=== PATIENT | male | born 1930 | race Two or more races ===

== ENCOUNTER 2020-09-18 07:42 | Inpatient (IN) | payer OTHER ==
[~2020-09-18] VITALS: Ht 177.8 cm; Wt 76.8 kg
[2020-09-18 08:48] LABS: Basophils # (auto) 0 10 ^3/uL (0-0.2); Basophils % (auto) 0.2 % (0.0-2.0); Eosinophils # (auto) 0 10 ^3/uL (0-0.8); Eosinophils % (auto) 0.1 % (0.0-7.0); Hematocrit 43.3 % (41.0-53.0); Hemoglobin 14.9 g/dL (13.5-17.5); Lymphocytes # (auto) 0.3 10 ^3/uL (0.4-5.4); Lymphocytes % (auto) 2.4 % (10.0-50.0); Mean Corpuscular Hemoglobin 31.7 pg (28.0-32.0); Mean Corpuscular Hgb Conc. 34.4 g/dL (32.0-36.0); Mean Corpuscular Volume 92.1 fL (80.0-100.0); Monocytes # (auto) 0.5 10 ^3/uL (0-1.3); Monocytes % (auto) 4.6 % (0.0-12.0); Neutrophils # (auto) 10.4 10 ^3/uL (1.6-8.6); Neutrophils % (auto) 92.7 % (37.0-80.0); Platelet Count (auto) 152 10^3/uL (140-450); Red Cell Distribution Width 13.4 % (11.8-14.3); White Blood Cell 11.2 10^3/uL (4.4-10.8)
[2020-09-18 09:03] LABS: Albumin 3.2 g/dL (3.4-5.0); Amylase 69 U/L (25-115); Anion Gap 6 (5-15); Blood Urea Nitrogen 20 mg/dL (7-18); Calcium 8.8 mg/dL (8.5-10.1); Carbon Dioxide 26 mmol/L (21-32); Chloride 105 mmol/L (98-107); Glucose 128 mg/dL (74-106); Lipase 209 U/L (73-393); Magnesium 2.3 mg/dL (1.6-2.6); Potassium 4.5 mmol/L (3.5-5.1); Sodium 137 mmol/L (136-145)
[2020-09-18 09:09] LABS: Alanine Aminotransferase 478 U/L (16-61); Alkaline Phosphatase 209 U/L (45-117); Aspartate Aminotransferase 456 U/L (15-37); Bilirubin, Total 3.8 mg/dL (0.2-1.0); GFR African American 65 mL/min; GFR Non-African American 54 mL/min; Total Protein 6.7 g/dL (6.4-8.2)
[2020-09-18] MEDS ORDERED: ALUM & MAG HYDROX-SIMETH LIQ(MAALOX) 30 ML PO ONE (09:15)
[2020-09-18] MEDS ORDERED: FAMOTIDINE 20 MG TAB PO ONE (09:15)
[2020-09-18] MEDS ORDERED: SODIUM CHLORIDE 0.9% 500 ML IVB ONE (09:15)
[2020-09-18] MEDS ORDERED: METOCLOPRAMIDE HCL 5MG/ml INJ 2ml VIAL IV ONE (09:15)
[2020-09-18] MEDS ORDERED: SODIUM CHLORIDE 0.9% 1,000 ML IV ONE ×4 (09:15→17:30)
[2020-09-18 10:25] LABS: Urine Bacteria NONE SEEN /hpf (None Seen); Urine Blood 2+ /uL (Negative); Urine Specific Gravity 1.019 (1.001-1.035); Urine WBC 1 /hpf (0 - 3)
[2020-09-18] MEDS ORDERED: IOHEXOL 300 MG/ML 100ML BOTTLE IJ ONE (12:25)
[2020-09-18] MEDS ORDERED: OMNIPAQUE ORAL SOLN 500ml 12mg/ml PO ONE (13:26)
[2020-09-18] MEDS ORDERED: ACETAMINOPHEN 325 MG TAB PO PRN ×2 (17:30→18:00)
[2020-09-18] MEDS ORDERED: ONDANSETRON HCL 4 MG/2 ML VIAL IV PRN (17:30)
[2020-09-18] MEDS ORDERED: HYDROcodone-ACET 5/325MG TAB PO PRN ×2 (17:30→18:00)
[2020-09-18] MEDS ORDERED: NITROGLYCERIN 0.4 MG SL TAB SL PRN (17:30)
[2020-09-18] MEDS ORDERED: hydrALAZINE HCL 20 MG/ML VL IV PRN ×2 (17:30→18:00)
[2020-09-18] MEDS ORDERED: MORPHINE SULF INJ 2 MG/ML SYRINGE 1ML IV PRN (17:30)
[2020-09-18] MEDS ORDERED: LISI-275 PO (17:35)
[2020-09-18] MEDS ORDERED: SIMV-13 PO (17:45)
[2020-09-18] MEDS ORDERED: ASPI-325 PO (17:45)
[2020-09-18 22:00] VITALS: BP 138/69
[2020-09-18] MEDS ORDERED: ATORVASTATIN 20 MG TAB PO SCH (22:00)
[2020-09-18 22:37] VITALS: BP 138/69
[2020-09-19 05:41] LABS: Basophils # (auto) 0 10 ^3/uL (0-0.2); Basophils % (auto) 0.7 % (0.0-2.0); Eosinophils # (auto) 0.2 10 ^3/uL (0-0.8); Eosinophils % (auto) 2.3 % (0.0-7.0); Hematocrit 37.8 % (41.0-53.0); Hemoglobin 13.3 g/dL (13.5-17.5); Lymphocytes # (auto) 0.7 10 ^3/uL (0.4-5.4); Lymphocytes % (auto) 10.3 % (10.0-50.0); Mean Corpuscular Hemoglobin 32.1 pg (28.0-32.0); Mean Corpuscular Hgb Conc. 35.3 g/dL (32.0-36.0); Monocytes # (auto) 0.6 10 ^3/uL (0-1.3); Monocytes % (auto) 8.8 % (0.0-12.0); Neutrophils # (auto) 5.1 10 ^3/uL (1.6-8.6); Neutrophils % (auto) 77.9 % (37.0-80.0); Platelet Count (auto) 122 10^3/uL (140-450); Red Blood Cells 4.15 10^6/uL (4.5-5.90); Red Cell Distribution Width 13.2 % (11.8-14.3); White Blood Cell 6.5 10^3/uL (4.4-10.8)
[2020-09-19 05:45] VITALS: BP 140/84
[2020-09-19 06:03] LABS: Albumin 2.8 g/dL (3.4-5.0); Calcium 8.2 mg/dL (8.5-10.1)
[2020-09-19 06:07] LABS: BUN/Creatinine Ratio 15.6; Bilirubin, Total 1.6 mg/dL (0.2-1.0); Total Protein 5.7 g/dL (6.4-8.2)
[2020-09-19 08:00] VITALS: BP 150/88
[2020-09-19] MEDS ORDERED: ENOXAPARIN SOD 40 MG/0.4 ML SYRINGE SC SCH (10:00)
[2020-09-19] MEDS ORDERED: LISINOPRIL 5 MG TAB PO SCH (10:00)
[2020-09-19] MEDS ORDERED: PANTOPRAZOLE 40 MG TAB PO SCH (10:00)
[2020-09-19] MEDS: ASPirin-EC 81 mg tab PO SCH ×2 (10:01→10:06)
[2020-09-19 12:56] LABS: Hepatitis A Ab IgM Negative
[2020-09-19 12:58] LABS: Hepatitis B Core IgM Negative
[2020-09-19 13:00] VITALS: BP 151/78
[2020-09-19 13:03] LABS: Hepatitis B Surface Antigen Negative (Negative)
[2020-09-19 13:18] LABS: Hepatitis C Antibody Negative (Negative)
[2020-09-19 13:48] VITALS: BP 150/88
== END 2020-09-19 16:38 | disposition home or self-care (01) | DRG 391 ==
LOC: ER 07:42 → EDBD 07:42 → OVERFLOW 17:27 → CENTRAL 21:45
PROVIDERS: ADMIT Internal Medicine; ATTEND Internal Medicine
DX: K52.9 Noninfective gastroenteritis and colitis, unspecified (principal); N17.0 Acute kidney failure with tubular necrosis; I69.354 Hemiplegia and hemiparesis following cerebral infarction affecting left non-dominant side; R19.00 Intra-abdominal and pelvic swelling, mass and lump, unspecified site; K31.4 Gastric diverticulum; R09.89 Other specified symptoms and signs involving the circulatory and respiratory systems; N18.31 Chronic kidney disease, stage 3a; R74.8 Abnormal levels of other serum enzymes; Z20.822 Contact with and (suspected) exposure to COVID-19; E78.5 Hyperlipidemia, unspecified; I12.9 Hypertensive chronic kidney disease with stage 1 through stage 4 chronic kidney disease, or unspecified chronic kidney disease; N40.0 Benign prostatic hyperplasia without lower urinary tract symptoms; Z87.01 Personal history of pneumonia (recurrent); Z90.79 Acquired absence of other genital organ(s)
CPT/HCPCS: 36415; 71046; 71260; 74176; 74177; 76705; 80053; 80074; 81001; 82150; 83690; 83735; 84443; 84484; 85025; 87426; 93005; 96360; 96361; G0378

== ENCOUNTER 2021-10-09 01:58 | Emergency (ER) | payer OTHER ==
[~2021-10-09] VITALS: Ht 175.3 cm; Wt 75.7 kg
[~2021-10-09 01:58] MED LIST: ASPI-325 PO; LISI-275 PO; SIMV-13 PO
[2021-10-09 05:44] VITALS: BP 129/85
== END 2021-10-09 06:00 | disposition home or self-care (01) ==
LOC: ER 01:58 → EDBD 01:58 → ER 06:00
DX: R07.81 Pleurodynia (principal); I10 Essential (primary) hypertension; E78.5 Hyperlipidemia, unspecified; Z86.73 Personal history of transient ischemic attack (TIA), and cerebral infarction without residual deficits; Z79.82 Long term (current) use of aspirin; Z79.899 Other long term (current) drug therapy; W01.198A Fall on same level from slipping, tripping and stumbling with subsequent striking against other object, initial encounter; Y93.89 Activity, other specified; Y92.89 Other specified places as the place of occurrence of the external cause; Y99.8 Other external cause status

== ENCOUNTER 2021-10-30 23:25 | Inpatient (IN) | payer OTHER ==
[~2021-10-30] VITALS: Ht 175.3 cm; Wt 78.8 kg
[2021-10-31 00:29] LABS: Basophils # (auto) 0 10 ^3/uL (0-0.2); Basophils % (auto) 0.3 % (0.0-2.0); Eosinophils # (auto) 0.2 10 ^3/uL (0-0.8); Eosinophils % (auto) 1.8 % (0.0-7.0); Hematocrit 40.9 % (41.0-53.0); Hemoglobin 13.9 g/dL (13.5-17.5); Lymphocytes # (auto) 0.9 10 ^3/uL (0.4-5.4); Lymphocytes % (auto) 7.9 % (10.0-50.0); Mean Corpuscular Hemoglobin 30.8 pg (28.0-32.0); Mean Corpuscular Hgb Conc. 34.1 g/dL (32.0-36.0); Mean Corpuscular Volume 90.5 fL (80.0-100.0); Monocytes # (auto) 0.7 10 ^3/uL (0-1.3); Monocytes % (auto) 6.4 % (0.0-12.0); Neutrophils # (auto) 9.1 10 ^3/uL (1.6-8.6); Neutrophils % (auto) 83.6 % (37.0-80.0); Red Blood Cells 4.51 10^6/uL (4.5-5.90); Red Cell Distribution Width 13.4 % (11.8-14.3); White Blood Cell 10.9 10^3/uL (4.4-10.8)
[2021-10-31] MEDS ORDERED: SODIUM CHLORIDE 0.9% 500 ML IV ONE (00:30)
[2021-10-31] MEDS ORDERED: SODIUM CHLORIDE 0.9% 1,000 ML IV ONE (00:30)
[2021-10-31 00:48] LABS: Albumin 2.7 g/dL (3.4-5.0); BUN/Creatinine Ratio 18.6; Calcium 8.2 mg/dL (8.5-10.1); Potassium 3.2 mmol/L (3.5-5.1)
[2021-10-31 00:51] LABS: Bilirubin, Total 0.7 mg/dL (0.2-1.0); Total Protein 5.7 g/dL (6.4-8.2)
[2021-10-31] MEDS: POTASSIUM CHL 20MEQ/100ML 100 ML IV SCH ×2 (02:33→04:21)
[2021-10-31] MEDS ORDERED: ONDANSETRON HCL 4 MG/2 ML VIAL IV PRN (04:30)
[2021-10-31] MEDS ORDERED: DOCUSATE SOD 100 MG CAP PO PRN (04:30)
[2021-10-31] MEDS ORDERED: ACETAMINOPHEN 325 MG TAB PO PRN (04:30)
[2021-10-31] MEDS: SODIUM CHLORIDE 0.9% 1,000 ML IV SCH ×2 (04:41→21:10)
[2021-10-31 06:47] LABS: Basophils # (auto) 0 10 ^3/uL (0-0.2); Basophils % (auto) 0.6 % (0.0-2.0); Eosinophils # (auto) 0.2 10 ^3/uL (0-0.8); Eosinophils % (auto) 2.4 % (0.0-7.0); Hematocrit 40.6 % (41.0-53.0); Hemoglobin 14.1 g/dL (13.5-17.5); Lymphocytes % (auto) 13.4 % (10.0-50.0); Mean Corpuscular Hemoglobin 31.1 pg (28.0-32.0); Mean Corpuscular Hgb Conc. 34.6 g/dL (32.0-36.0); Mean Corpuscular Volume 90.1 fL (80.0-100.0); Monocytes # (auto) 0.6 10 ^3/uL (0-1.3); Monocytes % (auto) 7.3 % (0.0-12.0); Neutrophils # (auto) 5.8 10 ^3/uL (1.6-8.6); Neutrophils % (auto) 76.3 % (37.0-80.0); Nucleated Red Blood Cells % 0.1 %; Red Blood Cells 4.51 10^6/uL (4.5-5.90); White Blood Cell 7.5 10^3/uL (4.4-10.8)
[2021-10-31 07:01] LABS: BUN/Creatinine Ratio 15.9; Calcium 8.1 mg/dL (8.5-10.1); Potassium 3.9 mmol/L (3.5-5.1)
[2021-10-31 07:35] VITALS: BP 117/61
[2021-10-31 09:16] VITALS: BP 118/60
[2021-10-31] MEDS: LISINOPRIL 5 MG TAB PO SCH (10:15)
[2021-10-31 13:00] VITALS: BP 156/77
[2021-10-31] MEDS ORDERED: levoFLOXacin 500 MG TAB PO ONE (14:45)
[2021-10-31 17:00] VITALS: BP 160/68
[2021-10-31] MEDS: HYDROcodone-ACET 5/325MG TAB PO PRN (17:42)
[2021-10-31 21:56] VITALS: BP 117/61
[2021-11-01] VITALS (7 sets, daily range): BP systolic 120–163; BP diastolic 42–90
[2021-11-01] MEDS: SODIUM CHLORIDE 0.9% 1,000 ML IV SCH (06:25)
[2021-11-01] MEDS: LISINOPRIL 5 MG TAB PO SCH (09:31)
[2021-11-01] MEDS: ATORVASTATIN 20 MG TAB PO SCH (20:27)
[2021-11-02 05:00] VITALS: BP 147/69
[2021-11-02] MEDS: SODIUM CHLORIDE 0.9% 1,000 ML IV SCH ×2 (05:50→23:10)
[2021-11-02 09:00] VITALS: BP 128/87
[2021-11-02] MEDS: ASPirin 81 mg TAB PO SCH (09:59)
[2021-11-02] MEDS: LISINOPRIL 5 MG TAB PO SCH (10:00)
[2021-11-02 13:00] VITALS: BP 112/44
[2021-11-02 16:37] VITALS: BP 106/82
[2021-11-02] MEDS: ATORVASTATIN 20 MG TAB PO SCH (21:34)
[2021-11-02 22:00] VITALS: BP 127/76
[2021-11-03] MEDS: HYDROcodone-ACET 5/325MG TAB PO PRN (05:02)
[2021-11-03 05:06] VITALS: BP 148/87
[2021-11-03 09:00] VITALS: BP 125/37
[2021-11-03] MEDS: LISINOPRIL 5 MG TAB PO SCH (10:00)
[2021-11-03] MEDS: ASPirin 81 mg TAB PO SCH (10:32)
[2021-11-03 13:00] VITALS: BP 125/62
[2021-11-03] MEDS: SODIUM CHLORIDE 0.9% 1,000 ML IV SCH (16:36)
[2021-11-03 17:00] VITALS: BP 106/63
[2021-11-03 22:00] VITALS: BP 118/75
[2021-11-03] MEDS: ATORVASTATIN 20 MG TAB PO SCH (22:14)
[2021-11-04 05:00] VITALS: BP 127/70
[2021-11-04] MEDS: HYDROcodone-ACET 5/325MG TAB PO PRN (06:15)
[2021-11-04] MEDS: SODIUM CHLORIDE 0.9% 1,000 ML IV SCH (06:15)
[2021-11-04 09:00] VITALS: BP_SYST 125; BP_SYST 140; BP_DIAS 42; BP_DIAS 72
[2021-11-04] MEDS: ASPirin 81 mg TAB PO SCH (09:50)
[2021-11-04] MEDS: LISINOPRIL 5 MG TAB PO SCH (09:51)
[2021-11-04 13:20] VITALS: BP 140/72
[2021-11-04 13:24] VITALS: BP 140/72
== END 2021-11-04 12:42 | disposition hospice, home (50) | DRG 641 ==
LOC: EDBD 23:25 → ER 23:25 → OVERFLOW 10-31 04:24 → TELE-CENTR 10-31 07:49
PROVIDERS: ADMIT Hospitalist; ATTEND Internal Medicine
DX: E87.6 Hypokalemia (principal); I49.3 Ventricular premature depolarization; F03.90 Unspecified dementia, unspecified severity, without behavioral disturbance, psychotic disturbance, mood disturbance, and anxiety; Z20.822 Contact with and (suspected) exposure to COVID-19; I10 Essential (primary) hypertension; Z74.01 Bed confinement status; Z86.73 Personal history of transient ischemic attack (TIA), and cerebral infarction without residual deficits; Z87.440 Personal history of urinary (tract) infections
CPT/HCPCS: 36415; 70450; 71250; 72125; 74176; 80048; 80053; 82550; 83735; 84484; 85025; 87081; 93005; 96361; 96365; 96366; 97110; 97116; 97163; 97530; G0378; J3480

== ENCOUNTER 2021-11-24 09:57 | Emergency (ER) | payer OTHER ==
[~2021-11-24] VITALS: Ht 170.2 cm; Wt 140.0 kg
[2021-11-24 10:49] LABS: Basophils # (auto) 0.1 10 ^3/uL (0-0.2); Basophils % (auto) 0.5 % (0.0-2.0); Eosinophils # (auto) 0.1 10 ^3/uL (0-0.8); Eosinophils % (auto) 0.5 % (0.0-7.0); Hematocrit 42.2 % (41.0-53.0); Hemoglobin 13.9 g/dL (13.5-17.5); Lymphocytes # (auto) 1.2 10 ^3/uL (0.4-5.4); Lymphocytes % (auto) 8.7 % (10.0-50.0); Mean Corpuscular Hemoglobin 30.1 pg (28.0-32.0); Mean Corpuscular Volume 91.3 fL (80.0-100.0); Monocytes # (auto) 0.7 10 ^3/uL (0-1.3); Monocytes % (auto) 4.9 % (0.0-12.0); Neutrophils % (auto) 85.4 % (37.0-80.0); Red Blood Cells 4.63 10^6/uL (4.5-5.90); Red Cell Distribution Width 13.5 % (11.8-14.3)
[2021-11-24 11:15] LABS: Calcium 8.4 mg/dL (8.5-10.1); Potassium 4.4 mmol/L (3.5-5.1)
[2021-11-24 11:19] LABS: BUN/Creatinine Ratio 15.3; Bilirubin, Total 0.8 mg/dL (0.2-1.0); Total Protein 5.9 g/dL (6.4-8.2)
[2021-11-24] MEDS ORDERED: AZITHROMYCIN 500MG/ 250ML 250 ML IV ONE (13:30)
[2021-11-24] MEDS ORDERED: cefTRIAXone 1GM/50ML D5W 50 ML IV ONE (13:30)
[2021-11-24] MEDS ORDERED: LEVO-28 PO (14:54)
[2021-11-24 15:20] VITALS: BP 98/59
== END 2021-11-24 15:21 | disposition home or self-care (01) ==
LOC: EDBD 09:57 → ER 09:57 → EDUNIT# 09:57 → ER 15:21
DX: I24.9 Acute ischemic heart disease, unspecified (principal); J18.9 Pneumonia, unspecified organism; E46 Unspecified protein-calorie malnutrition; I10 Essential (primary) hypertension; E78.5 Hyperlipidemia, unspecified; Z68.42 Body mass index [BMI] 45.0-49.9, adult; Z86.73 Personal history of transient ischemic attack (TIA), and cerebral infarction without residual deficits; Z79.82 Long term (current) use of aspirin; Z79.2 Long term (current) use of antibiotics; Z79.899 Other long term (current) drug therapy
CPT/HCPCS: 36415; 71045; 80053; 84484; 85025; 93005; 96365; 96368; 99285; J0456; J0696